=== PATIENT | female | born 1975 | race Two or more races ===

== ENCOUNTER 2016-09-22 18:50 | Emergency (ER) | payer MEDICAID ==
[~2016-09-22] VITALS: Ht 157.5 cm; Wt 56.2 kg
[2016-09-22 19:36] VITALS: BP 105/62
== END 2016-09-22 21:10 | disposition home or self-care (01) ==
LOC: ER 18:55
DX: S80.11XA Contusion of right lower leg, initial encounter (principal); W22.8XXA Striking against or struck by other objects, initial encounter; Y92.89 Other specified places as the place of occurrence of the external cause; Y93.89 Activity, other specified; Y99.8 Other external cause status
CPT/HCPCS: A4606; Z7610